=== PATIENT | female | born 1965 | race African-American/Black ===

== ENCOUNTER 2022-06-20 04:01 | Emergency (ER) | payer OTHER ==
[2022-06-20] MEDS ORDERED: ACETAMINOPHEN 325MG TABLET PO STA (04:52)
[2022-06-20] MEDS ORDERED: SODIUM CHLORIDE 0.9% 1,000 ML IV ONE ×2 (05:00→06:15)
[2022-06-20 05:19] LABS: HEMATOCRIT. 40.8 % (36.0-48.0); HEMOGLOBIN. 13.7 g/dL (12.0-16.0); MEAN CORPUSCULAR HEMOGLOBIN 29.5 pg (28.0-32.0); MEAN CORPUSCULAR VOLUME 87.7 fL (81.0-99.0); MEAN PLATELET VOLUME 9.3 fl (7.4-10.4); PLATELET 204 x1000/uL (130-400); RED BLOOD CELL COUNT 4.65 mill/uL (4.2-5.4); RED CELL DISTRIBUTION WIDTH 14.7 % (11.6-14.6)
[2022-06-20 05:31] LABS: CHLORIDE 100 mEq/L (98-107)
[2022-06-20] MEDS ORDERED: KETOROLAC 30MG/ML VIAL IV ONE (06:15)
[2022-06-20 10:20] LABS: CLARITY URINE CLEAR (CLEAR); COLOR URINE YELLOW (YELLOW); KETONES URINE 1+ (NEGATIVE); LEUKOCYTE ESTERASE URINE NEGATIVE (NEGATIVE); NITRITE URINE NEGATIVE (NEGATIVE); OCCULT BLOOD URINE 3+ (NEGATIVE); PROTEIN URINE 1+ (NEGATIVE); SPECIFIC GRAVITY URINE 1.012 (1.005-1.030); UROBILINOGEN URINE 0.2 E.U./dL (0.2-1.0)
[2022-06-20] MEDS ORDERED: CEFTRIAXONE 1GM PREMIX 50 ML IV ONE (11:45)
[2022-06-20] MEDS ORDERED: CEPH500C2 MT (12:28)
[2022-06-20 13:10] VITALS: BP 110/78
[2022-06-20 13:54] LABS: PLATELET ESTIMATE NORMAL
== END 2022-06-20 13:17 | disposition home or self-care (01) ==
LOC: ER 04:01
DX: R50.9 Fever, unspecified (principal); E86.0 Dehydration; R31.9 Hematuria, unspecified; Z20.822 Contact with and (suspected) exposure to COVID-19
CPT/HCPCS: 36415; 71045; 80053; 81003; 83605; 85025; 87040; 87070; 87426; 87430; 87804; 93005; 96361; 96365; 99285; C9803; J0696; J7030; Z7610

== ENCOUNTER 2022-10-22 13:00 | Emergency (ER) | payer OTHER ==
[~2022-10-22] VITALS: Ht 177.8 cm; Wt 77.0 kg
[~2022-10-22 13:00] MED LIST: CEPH500C2 MT
[2022-10-22 13:19] VITALS: BP 174/97; PULSE 85; RESP 20; TEMP 98.5; O2SAT 100
== END 2022-10-22 15:25 | disposition left against medical advice (07) ==
LOC: ER 13:00
DX: R22.0 Localized swelling, mass and lump, head (principal); Z88.5 Allergy status to narcotic agent
CPT/HCPCS: 99281